=== PATIENT | male | born 2005 | race Caucasian/White ===

== ENCOUNTER 2025-03-28 23:04 | Emergency (ER) | payer SELFPAY | END 2025-03-28 23:53 | disposition home or self-care (01) | LOC: MADERS 23:04 | DX: S63.501A Unspecified sprain of right wrist, initial encounter (principal); F17.290 Nicotine dependence, other tobacco product, uncomplicated; W19.XXXA Unspecified fall, initial encounter | CPT/HCPCS: 99283 ==